=== PATIENT | female | born 1955 | race Two or more races ===

== ENCOUNTER 2018-01-24 12:07 | Emergency (ER) | payer MEDICARE, MEDICAID ==
[2018-01-24] MEDS ORDERED: Glucagon Recombinant 1 mg Inj IM STA (12:17)
[2018-01-24] MEDS ORDERED: Dextrose 50% SYRINGE Inj (50 ml) IVP STA (12:18)
[2018-01-24 12:21] VITALS: RESP 19; O2SAT 98
[2018-01-24 12:22] VITALS: BMI 31.8
[2018-01-24 12:51] LABS: BASO # 0.02 K/mm3 (0.0-2.0); BASO % 0.2 % (0.0-3.0); EOS % 0.4 % (1.5-5.0); GRAN # 8.22 (1.4-6.5); GRAN % 75.4 % (50.0-68.0); HEMOGLOBIN 13.9 g/dL (12.0-16.0); LYMPH # 1.9 (1.2-3.4); LYMPH % 17.6 % (22.0-35.0); MEAN CELL VOLUME 84.7 fl (80.0-105.0); MEAN CORPUSCULAR HEMOGLOBIN 29.9 pg (25.0-35.0); MEAN CORPUSCULAR HGB CONC 35.3 g/dl (31.0-37.0); MEAN PLATELET VOLUME 9.5 fl (7.0-11.0); MONO # 0.7 (0.1-0.6); MONO % 6.4 % (1.0-6.0); RBC 4.65 10^6/uL (3.5-6.1); RED CELL DISTRIBUTION WIDTH 14.5 % (11.5-14.5); WHITE BLOOD COUNT 10.9 10^3/ul (4.5-11.0)
[2018-01-24 12:59] LABS: ALB/GLOB RATIO 1.4 (1.1-1.8); ALBUMIN 4.7 g/dL (3.0-4.8); ALT/SGPT 41 U/L (7-56); AST/SGOT 27 U/L (14-36); BLOOD UREA NITROGEN 13 mg/dL (7-21); CALCIUM 8.1 mg/dL (8.4-10.5); GFR AFRICAN-AMERICAN > 60; GFR NON-AFRICAN AMERICAN > 60
--- NOTE | 2018-01-24 13:30 | ED PDOC ---
Arrival/HPI - General Chief Complaint: Altered Mental Status Time Seen by Provider: 01/24/18 12:16 Historian: Patient - History of Present Illness Narrative History of Present Illness (Text): 01/24/18 13:26 62 year old female, whose past medical history includes diabetes, dialysis ( stopped due to upcoming kidney transplant), who presents to the emergency department via EMS for AMS. Patient was foudn in a parking lot diaphoretic and lethargic. Patient notes she didn't eat today. Patient denies any hyperglycelic episodes, fever, chills, chest pain, shortness of breath, nausea, vomiting, diarrhea, back pain, neck pain, or any other complaints. 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 Time/Duration: Prior to Arrival Symptom Onset: Sudden Symptom Course: Improving Activities at Onset: Light Context: Street Past Medical History - Provider Review Nursing Documentation Reviewed: Yes - Infectious Disease Hx of Infectious Diseases: None - Psychiatric Hx Substance Use: No Family/Social History - Physician Review Nursing Documentation Reviewed: Yes Family/Social History: Unknown Family HX Smoking Status: Unknown If Ever Smoked Hx Alcohol Use: No Hx Substance Use: No Allergies/Home Meds Allergies/Adverse Reactions: Allergies Unobtainable Allergy (Unverified 01/24/18 12:17) Home Medications: Home Meds Medication Instructions Recorded Confirmed Unobtainable 01/24/18 01/24/18 Review of Systems - Physician Review All systems were reviewed & negative as marked: Yes - Review of Systems Constitutional: Fatigue Eyes: Normal ENT: Normal Respiratory: Normal. absent: SOB, Cough Cardiovascular: Normal. absent: Chest Pain Gastrointestinal: Normal. absent: Abdominal Pain Genitourinary Female: Normal. absent: Dysuria, Frequency Musculoskeletal: Normal. absent: Back Pain, Neck Pain Skin: Normal. absent: Rash Neurological: Normal Endocrine: Diaphoresis Hemo/Lymphatic: Normal Psychiatric: Normal Physical Exam Vital Signs Reviewed: Yes Vital Signs Temp Pulse Resp BP Pulse Ox 01/24/18 12:21 95.4 F L 55 L 19 133/63 98 Temperature: Hypothermic Blood Pressure: Normal Pulse: Bradycardic Respiratory Rate: Normal Appearance: Positive for: Well-Appearing, Non-Toxic, Comfortable Pain Distress: None Mental Status: Positive for: Alert and Oriented X 3 Finger Stick Blood Glucose: 185 - Systems Exam Head: Present: Atraumatic, Normocephalic Pupils: Present: PERRL Extroacular Muscles: Present: EOMI Conjunctiva: Present: Normal Mouth: Present: Moist Mucous Membranes Neck: Present: Normal Range of Motion. No: Meningeal Signs, MIDLINE TENDERNESS Respiratory/Chest: Present: Clear to Auscultation, Good Air Exchange. No: Respiratory Distress, Accessory Muscle Use Cardiovascular: Present: Regular Rate and Rhythm, Normal S1, S2. No: Murmurs Abdomen: No: Tenderness, Distention, Peritoneal Signs Rectal: No: Occult Blood, Rectal Tenderness, Gross Blood, Melena Back: Present: Normal Inspection. No: CVA Tenderness, Midline Tenderness Upper Extremity: Present: Normal Inspection. No: Cyanosis, Edema Lower Extremity: Present: Normal Inspection. No: Edema, CALF TENDERNESS Neurological: Present: GCS=15, CN II-XII Intact, Speech Normal Skin: Present: Warm, Dry, Normal Color. No: Rashes Psychiatric: Present: Alert, Oriented x 3, Normal Insight, Normal Concentration Medical Decision Making ED Course and Treatment: 01/24/18 13:31 Impression: 62 year old female presents to the emergency department via EMS for AMS s/p being found in parking lot. Plan: -- EKG -- Labs -- Dextrose -- Glucagen -- Reassess and disposition Progress Notes: 01/24/18 15:29 pt improved, hypoglycemia 2ondary to decreased PO intake, pt is refusing urine, and wants to leave. no symptoms, given her history, they are aware we could be missing an infection Reassessment Condition: Re-examined, Improving,but remains with symptoms - Lab Interpretations Lab Results: 01/24/18 12:40 01/24/18 12:40 Lab Results 01/24/18 12:40: Alcohol, Quantitative < 10 01/24/18 12:40: Sodium 144, Potassium 3.4 L, Chloride 103, Carbon Dioxide 25, Anion Gap 20, BUN 13, Creatinine 0.8, Est GFR ( Amer) > 60, Est GFR (Non- Af Amer) > 60, Random Glucose 54 L, Calcium 8.1 L, Total Bilirubin 0.5, AST 27, ALT 41, Alkaline Phosphatase 124, Total Protein 8.1, Albumin 4.7, Globulin 3.4, Albumin/Globulin Ratio 1.4 01/24/18 12:40: WBC 10.9, RBC 4.65, Hgb 13.9, Hct 39.4, MCV 84.7, MCH 29.9, MCHC 35.3, RDW 14.5, Plt Count 210, MPV 9.5, Gran % 75.4 H, Lymph % (Auto) 17.6 L, Blount % (Auto) 6.4 H, Eos % (Auto) 0.4 L, Baso % (Auto) 0.2, Gran # 8.22 H, Lymph # (Auto) 1.9, Blount # (Auto) 0.7 H, Eos # (Auto) 0.0, Baso # (Auto) 0.02 01/24/18 12:30: Troponin I < 0.01 - Medication Orders Current Medication Orders: Discontinued Medications Dextrose (Dextrose 50% Inj) 50 ml IVP STAT STA Stop: 01/24/18 12:19 Last Admin: 01/24/18 12:20 Dose: 50 ml IVP Administration Document 01/24/18 12:20 OCS (Rec: 01/24/18 12:42 OCS [id number]) Charges for Administration # of IVP Administrations 1 Glucagon (Glucagen Diagnostic Kit) 1 mg IM STAT STA Stop: 01/24/18 12:18 Last Admin: 01/24/18 12:20 Dose: 1 mg IM Administration Charges Document 01/24/18 12:20 OCS (Rec: 01/24/18 12:42 OCS [id number]) Injection Site MAR Injection Site Right Vastus Lateralis Charges for Administration # of IM Administrations 1 Potassium Chloride (K-Dur 20 Meq Er Tab) 40 meq PO STAT STA Stop: 01/24/18 14:36 - PA / SURVEY RESEARCH MANAGER / Resident Statement MD/DO has reviewed & agrees with the documentation as recorded. - Scribe Statement The provider has reviewed the documentation as recorded by the Scribe Ailyn Baca All medical record entries made by the Scribe were at my direction and personally dictated by me. I have reviewed the chart and agree that the record accurately reflects my personal performance of the history, physical exam, medical decision making, and the department course for this patient. I have also personally directed, reviewed, and agree with the discharge instructions and disposition. Disposition/Present on Arrival - Present on Arrival Any Indicators Present on Arrival: Yes History of DVT/PE: No History of Uncontrolled Diabetes: Yes Urinary Catheter: No History of Decub. Ulcer: No History Surgical Site Infection Following: None - Disposition Have Diagnosis and Disposition been Completed?: Yes Diagnosis: Hypoglycemia Disposition: HOME/ ROUTINE Disposition Time: 15:29 Patient Plan: Discharge Patient Problems: Current Active Problems Problem Status Onset Hypoglycemia Acute Condition: IMPROVED Discharge Instructions (ExitCare): Low Blood Sugar in People With Diabetes Forms: [facility] ([place])
[2018-01-24] MEDS ORDERED: Potassium Chloride 20 mEq ER Tab PO STA (14:35)
[2018-01-24 15:58] VITALS: BP 140/67; PULSE 60; TEMP 98.3
--- NOTE | 2018-01-24 23:21 | CARD ---
APPROVED REPORT EKG Measurement Heart [id number] <Conclusion> Sinus bradycardia Nonspecific T wave abnormality Prolonged QT Abnormal ECG
== END 2018-01-24 15:58 | disposition home or self-care (01) ==
LOC: EDBD 12:07 → ED 12:07 → MERGE 12:07 → ED 15:58
DX: E11.649 Type 2 diabetes mellitus with hypoglycemia without coma (principal); E11.22 Type 2 diabetes mellitus with diabetic chronic kidney disease; N18.6 End stage renal disease; Z99.2 Dependence on renal dialysis
CPT/HCPCS: 80053; 84484; 85025; 93005; 96372; 96374; 99285; G0480; J1610